=== PATIENT | female | born 1970 | race Caucasian/White ===

== ENCOUNTER 2017-06-30 10:05 | Emergency (ER) | payer MEDICAID ==
[2017-06-30] MEDS: KETOROLAC 60 MG INJ IM (10:41)
== END 2017-06-30 12:50 | disposition home or self-care (01) ==
LOC: FTE 10:05
DX: M25.511 Pain in right shoulder (principal)
CPT/HCPCS: 73030; 73030-RT; 73080-LT; 81025; 96372; 99284-25

== ENCOUNTER 2018-08-31 17:57 | Inpatient (IN) | payer MEDICAID ==
[2018-08-31 19:36] LABS: ADD MAN DIFF? NO
[2018-08-31 19:40] LABS: BASOPHILS % 0.3 % (0.0-2.0); EOSINOPHILS # 0.1 10^3/ul (0.0-0.5); EOSINOPHILS % 0.6 % (0.0-7.0); HEMATOCRIT 27.9 % (37.0-47.0); HEMOGLOBIN 8.3 g/dl (12.0-16.0); LYMPHOCYTES # 2.1 10^3/ul (0.8-2.9); LYMPHOCYTES % 14.8 % (15.0-51.0); MEAN CORPUSCULAR HEMOGLOBIN 20.6 pg (29.0-33.0); MEAN CORPUSCULAR HGB CONC 29.7 g/dl (32.0-37.0); MEAN CORPUSCULAR VOLUME 69.4 fl (82.0-101.0); MEAN PLATELET VOLUME 10.8 fl (7.4-10.4); MONOCYTE # 0.9 10^3/ul (0.3-0.9); NEUTROPHIL # 11.1 10^3/ul (1.6-7.5); NEUTROPHILS % 77.9 % (39.0-77.0); PLATELET COUNT 239 10^3/UL (140-415); RED BLOOD COUNT 4.02 10^6/ul (4.20-5.40); RED CELL DISTRIBUTION WIDTH 19.1 % (11.5-14.5)
[2018-08-31 19:40] LABS: WHITE BLOOD COUNT 14.2 10^3/ul (4.8-10.8)
[2018-08-31] MEDS: SOD CHLORIDE 0.9% 1,000 ML IV ×2 (19:45→22:44)
[2018-08-31] MEDS: ONDANSETRON 4 MG INJ IV (19:45)
[2018-08-31] MEDS: KETOROLAC 15 MG INJ IV (19:45)
[2018-08-31 19:55] LABS: ADD UMIC NO; UR ASCORBIC ACID NEGATIVE (NEGATIVE); UR BILIRUBIN (Dip) NEGATIVE (NEGATIVE); UR BLOOD (Dip) NEGATIVE (NEGATIVE); UR CLARITY CLEAR (CLEAR); UR COLOR COLORLESS (YELLOW); UR GLUCOSE (Dip) NEGATIVE (NEGATIVE); UR KETONES (Dip) NEGATIVE (NEGATIVE); UR LEUKOCYTE ESTERASE (Dip) NEGATIVE Leu/ul (NEGATIVE); UR NITRITE (Dip) NEGATIVE (NEGATIVE); UR SPECIFIC GRAVITY (Dip) 1.003 (1.003-1.030); UR TOTAL PROTEIN (Dip) NEGATIVE (NEGATIVE); UR UROBILINOGEN (Dip) NEGATIVE (NEGATIVE)
[2018-08-31 19:57] LABS: ALANINE AMINOTRANSFERASE 21 IU/L (13-69); ALBUMIN 4.2 g/dl (3.3-4.9); ALKALINE PHOSPHATASE 89 IU/L (42-121); ANION GAP 10 (5-13); ASPARTATE AMINO TRANSFERASE 22 IU/L (15-46); BILIRUBIN,INDIRECT 0.4 mg/dl (0-1.1); BILIRUBIN,TOTAL 0.4 mg/dl (0.2-1.3); BLOOD UREA NITROGEN 10 mg/dl (7-20); CALCIUM 9.1 mg/dl (8.4-10.2); CARBON DIOXIDE 24 mmol/L (21-31); CHLORIDE 105 mmol/L (97-110); Estimated GFR > 60 mL/min (>60); GLUCOSE 113 mg/dl (70-220); LIPASE 59 U/L (23-300); POTASSIUM 4.2 mmol/L (3.5-5.1); SODIUM 139 mmol/L (135-144)
[2018-08-31] MEDS ORDERED: NACL 0.9% 3 ML SYG IV (22:30)
[2018-08-31] MEDS ORDERED: ACETAMINOPHEN 325 MG TAB PO (22:30)
[2018-08-31] MEDS ORDERED: BISACODYL (EC) 5 MG TAB PO (22:30)
[2018-08-31] MEDS ORDERED: DOCUSATE SODIUM 100 MG CAP PO (22:30)
[2018-08-31] MEDS ORDERED: ONDANSETRON 4 MG INJ IV (22:30)
[2018-08-31] MEDS: PIPER-TAZO 3.375 GM IV (PMX) 100 ML IVPB (22:45)
[2018-09-01] MEDS: SOD CHLORIDE 0.9% 1,000 ML IV ×3 (00:38→14:36)
[2018-09-01] MEDS: PIPER-TAZO 3.375 GM IV (PMX) 100 ML IVPB ×3 (05:56→18:48)
[2018-09-01 06:15] LABS: ADD MAN DIFF? NO
[2018-09-01 06:23] LABS: WHITE BLOOD COUNT 9.3 10^3/ul (4.8-10.8)
[2018-09-01 06:23] LABS: BASOPHILS % 0.3 % (0.0-2.0); EOSINOPHILS # 0.1 10^3/ul (0.0-0.5); EOSINOPHILS % 0.8 % (0.0-7.0); HEMATOCRIT 29.3 % (37.0-47.0); HEMOGLOBIN 8.6 g/dl (12.0-16.0); LYMPHOCYTES # 1.7 10^3/ul (0.8-2.9); LYMPHOCYTES % 18.1 % (15.0-51.0); MEAN CORPUSCULAR HEMOGLOBIN 20.5 pg (29.0-33.0); MEAN CORPUSCULAR HGB CONC 29.4 g/dl (32.0-37.0); MEAN CORPUSCULAR VOLUME 69.9 fl (82.0-101.0); MEAN PLATELET VOLUME 11.3 fl (7.4-10.4); MONOCYTE # 0.6 10^3/ul (0.3-0.9); MONOCYTES % 5.9 % (0.0-11.0); NEUTROPHIL # 6.9 10^3/ul (1.6-7.5); NEUTROPHILS % 74.4 % (39.0-77.0); PLATELET COUNT 228 10^3/UL (140-415); RED BLOOD COUNT 4.19 10^6/ul (4.20-5.40); RED CELL DISTRIBUTION WIDTH 19.5 % (11.5-14.5)
[2018-09-01 06:43] LABS: IRON 22 ug/dl (35-150)
[2018-09-01 06:51] LABS: ALANINE AMINOTRANSFERASE 22 IU/L (13-69); ALBUMIN 3.5 g/dl (3.3-4.9); ALBUMIN/GLOBULIN RATIO 1.09; ALKALINE PHOSPHATASE 71 IU/L (42-121); ANION GAP 7 (5-13); ASPARTATE AMINO TRANSFERASE 27 IU/L (15-46); BILIRUBIN,INDIRECT 0.4 mg/dl (0-1.1); BILIRUBIN,TOTAL 0.4 mg/dl (0.2-1.3); BLOOD UREA NITROGEN 8 mg/dl (7-20); CARBON DIOXIDE 24 mmol/L (21-31); CHLORIDE 111 mmol/L (97-110); CHOL/HDL RATIO 3.8 RATIO; CHOLESTEROL 172 mg/dl (100-200); Estimated GFR > 60 mL/min (>60); GLUCOSE 94 mg/dl (70-220); HDL CHOLESTEROL 45 mg/dl (34-88); LDL CHOLESTEROL,CALCULATED 104 mg/dl; MAGNESIUM 2.1 mg/dl (1.7-2.5); POTASSIUM 3.9 mmol/L (3.5-5.1); SODIUM 142 mmol/L (135-144); TOTAL PROTEIN 6.7 g/dl (6.1-8.1); TRIGLYCERIDES 115 mg/dl (0-149)
[2018-09-01 06:52] LABS: % IRON SATURATION 6 % SAT (22-52); TOTAL IRON BINDING CAPACITY 376 ug/dl (241-421)
[2018-09-01 07:20] LABS: FERRITIN 17.5 ng/ml (6.2-137.0)
[2018-09-01 07:31] LABS: HEMOGLOBIN A1C 5.4 % (0-5.9)
[2018-09-01] MEDS ORDERED: NEOSTIGMINE 3 MG/3 ML SYRINGE (16:07)
[2018-09-01] MEDS ORDERED: ROCURONIUM 50 MG INJ (16:07)
[2018-09-01] MEDS ORDERED: GLYCOPYRROLATE 0.4 MG INJ (16:07)
[2018-09-01] MEDS ORDERED: METOCLOPRAMIDE 10 MG INJ (16:07)
[2018-09-01] MEDS ORDERED: ROPIVACAINE 0.5 % 30 ML VIAL (16:07)
[2018-09-01] MEDS ORDERED: ONDANSETRON 4 MG INJ (16:07)
[2018-09-01] MEDS ORDERED: PROPOFOL 20 ML (16:07)
[2018-09-01] MEDS ORDERED: hydrALAzine 20 MG INJ IV (16:30)
[2018-09-01] MEDS ORDERED: HYDROmorphONE 1 MG/5 ML IV SYRINGE IV ×3 (16:30)
[2018-09-01] MEDS ORDERED: MEPERIDINE 25 MG INJ IV (16:30)
[2018-09-01] MEDS ORDERED: FENTAnyl 50 MCG/ML VIAL IV ×3 (16:30)
[2018-09-01] MEDS ORDERED: DIPHENHYDRAMINE 50 MG INJ IV (16:30)
[2018-09-01] MEDS ORDERED: LABETALOL HCL 20MG INJ IV (16:30)
[2018-09-01] MEDS ORDERED: ONDANSETRON 4 MG INJ IV ×2 (16:30→17:00)
[2018-09-01] MEDS ORDERED: KETOROLAC 30 MG INJ IV (16:30)
[2018-09-01] MEDS ORDERED: OXYCODONE/ACETAMINOPHEN (5/325) TAB PO ×2 (17:00)
[2018-09-01] MEDS ORDERED: morphine 2 MG INJ IV (17:00)
[2018-09-01] MEDS ORDERED: KETOROLAC 30 MG INJ (17:04)
[2018-09-01] MEDS: BUPIVACAINE 0.25%/EPI (SDV) 30 ML INJ (17:15)
[2018-09-02] MEDS: PIPER-TAZO 3.375 GM IV (PMX) 100 ML IVPB ×3 (00:26→11:56)
[2018-09-02] MEDS: SOD CHLORIDE 0.9% 1,000 ML IV (00:26)
[2018-09-02] MEDS: morphine 2 MG INJ IV ×2 (05:55→11:56)
[2018-09-02 06:22] LABS: ADD MAN DIFF? NO
[2018-09-02 06:38] LABS: WHITE BLOOD COUNT 10.6 10^3/ul (4.8-10.8)
[2018-09-02 06:38] LABS: BASOPHILS % 0.3 % (0.0-2.0); EOSINOPHILS % 0.4 % (0.0-7.0); HEMATOCRIT 27.9 % (37.0-47.0); HEMOGLOBIN 8.1 g/dl (12.0-16.0); LYMPHOCYTES # 1.8 10^3/ul (0.8-2.9); MEAN CORPUSCULAR HEMOGLOBIN 20.5 pg (29.0-33.0); MEAN CORPUSCULAR VOLUME 70.6 fl (82.0-101.0); MEAN PLATELET VOLUME 11.9 fl (7.4-10.4); MONOCYTE # 0.6 10^3/ul (0.3-0.9); MONOCYTES % 5.3 % (0.0-11.0); NEUTROPHIL # 8.1 10^3/ul (1.6-7.5); NEUTROPHILS % 76.6 % (39.0-77.0); PLATELET COUNT 235 10^3/UL (140-415); RED BLOOD COUNT 3.95 10^6/ul (4.20-5.40); RED CELL DISTRIBUTION WIDTH 19.1 % (11.5-14.5)
[2018-09-02 06:59] LABS: ANION GAP 10 (5-13); BLOOD UREA NITROGEN 6 mg/dl (7-20); CALCIUM 7.8 mg/dl (8.4-10.2); CARBON DIOXIDE 20 mmol/L (21-31); CHLORIDE 110 mmol/L (97-110); CREATININE 0.49 mg/dl (0.44-1.00); Estimated GFR > 60 mL/min (>60); GLUCOSE 70 mg/dl (70-220); SODIUM 140 mmol/L (135-144)
[2018-09-02 07:14] LABS: MAGNESIUM 1.9 mg/dl (1.7-2.5)
[2018-09-02 07:14] LABS: PHOSPHORUS 2.8 mg/dl (2.5-4.9)
[2018-09-02] MEDS: FERROUS FUMARATE (SR) TAB PO (11:56)
== END 2018-09-02 14:40 | disposition home or self-care (01) | DRG 343 ==
LOC: PP2 22:20 → E/R 17:57
PROC: 0DTJ4ZZ Resection of Appendix, Percutaneous Endoscopic Approach (ICD-10-PCS; principal; 2018-09-01 16:00)
DX: K35.80 Unspecified acute appendicitis (principal); D50.9 Iron deficiency anemia, unspecified; R11.0 Nausea
CPT/HCPCS: 36415; 74176; 80048; 80053; 80061; 81003; 81025; 82728; 83036; 83540; 83690; 83735; 84100; 84443; 85025; 86850; 86900; 86901; 88304; 96374; 96375; 99285-25